=== PATIENT | female | born 1985 | race Hispanic/Latino ===

== ENCOUNTER 2019-05-08 00:27 | Emergency (ER) | payer OTHER ==
[2019-05-08] MEDS ORDERED: KETOROLAC TROMETHAMINE 60 MG/2 ML VIAL ONE (01:55)
== END 2019-05-08 02:05 | disposition home or self-care (01) ==
LOC: EDH 00:27
DX: S62.634A Displaced fracture of distal phalanx of right ring finger, initial encounter for closed fracture (principal); M85.641 Other cyst of bone, right hand; W22.8XXA Striking against or struck by other objects, initial encounter; Y93.89 Activity, other specified; Y92.89 Other specified places as the place of occurrence of the external cause; Y99.8 Other external cause status
CPT/HCPCS: 29130; 73130; 81025; 96372; 99285; J1885

== ENCOUNTER 2023-05-06 16:37 | Emergency (ER) | payer OTHER ==
[~2023-05-06] VITALS: Ht 162.6 cm; Wt 102.1 kg
[2023-05-06] MEDS ORDERED: CEFTRIAXONE 1G VIAL IM ONE (17:30)
[2023-05-06] MEDS ORDERED: LIDOCAINE 1%-EPI 1:100,000 20 ML VIAL IJ SCH (17:30)
[2023-05-06] MEDS ORDERED: TETANUS/DIPHTHERIA TOXOID [ADULT] 0.5 ML VIAL IM ONE (17:30)
[2023-05-06] MEDS ORDERED: CEPH500B PO (18:17)
[2023-05-06 18:23] VITALS: BP 138/79
== END 2023-05-06 18:22 | disposition home or self-care (01) ==
LOC: EDH 16:37
DX: S71.111A Laceration without foreign body, right thigh, initial encounter (principal); Z98.890 Other specified postprocedural states; X58.XXXA Exposure to other specified factors, initial encounter; Y93.89 Activity, other specified; Y92.89 Other specified places as the place of occurrence of the external cause; Y99.8 Other external cause status
CPT/HCPCS: 99284; 90714; 90471; 12002; 96372; J3490; J0696

== ENCOUNTER 2023-05-18 19:37 | Emergency (ER) | payer OTHER ==
[~2023-05-18] VITALS: Ht 165.1 cm; Wt 109.3 kg
[~2023-05-18 19:37] MED LIST: CEPH500B PO
[2023-05-18 19:58] VITALS: BP 122/64
== END 2023-05-18 20:02 | disposition home or self-care (01) ==
LOC: EDH 19:37
DX: S81.812D Laceration without foreign body, left lower leg, subsequent encounter (principal); Z48.02 Encounter for removal of sutures; X58.XXXD Exposure to other specified factors, subsequent encounter
CPT/HCPCS: 99281